=== PATIENT | female | born 1955 | race Caucasian/White ===

== ENCOUNTER 2017-09-12 05:00 | Day surgery (SDC) | payer BC ==
[2017-09-11 12:46] LABS: HEMATOCRIT 39.7 % (36.0-48.0); HEMOGLOBIN 13.3 g/dL (12-16); MCH 31.5 pg (26.0-34.0); MCHC 33.5 g/dL (31.0-37.0); MCV 94.1 fL (80.0-100.0); RBC 4.22 10x6/uL (4.00-5.40); RDW 13.5 % (11.5-14.5); WBC 4.9 10x3/uL (4.8-10.8)
[~2017-09-12] VITALS: Ht 174 cm; Wt 90.7 kg
[~2017-09-12 05:00] MED LIST: ADVAIR 250/501 DISK INH; BIOTIN5 MG PO; CALCIUM 500 +1 EAC3 PO; CALCIUM CA500 MG/51 PO; CENTRUM SILVER1 TA1 PO; CYMBALTA30 MG PO; ESTRACE 0.5 MG0.5 MG PO; FOLIC ACID1 MG PO; MIRALAX17 GM PO; PROMETRIUM200 MG PO; TREXALL10 MG PO; VENTOLIN HFA18 GM INH
[2017-09-12 06:24] VITALS: BP 124/81; Ht 174 cm; Wt 90.7 kg
--- NOTE | 2017-09-19 09:32 | OP ---
PATIENT NAME: LINA BARAHONA MEDICAL RECORD: [id number] :51 LOCATION:D.OPS ADMISSION DATE: SURGEON: RUBIA NAZARIO DPM DATE OF OPERATION: 09/12/2017 PREOPERATIVE DIAGNOSES: 1. Retrocalcaneal spur, left foot. 2. Achilles tendon disruption, left foot. POSTOPERATIVE DIAGNOSES: 1. Retrocalcaneal spur, left foot. 2. Achilles tendon disruption, left foot. PROCEDURES: 1. Gastroc recession, left leg. 2. Retrocalcaneal spur excision, left foot. 3. Achilles tendon repair, left foot. ANESTHESIA: Preoperative popliteal block per the anesthesia department as well as general anesthesia intraoperatively. HEMOSTASIS: Left thigh tourniquet at 350 mmHg. PREOPERATIVE DETAILS: The patient was taken to the OR and placed on the operating table in a prone position. Prior to placing the patient on the operating table, general anesthesia was induced. The left extremity was then prepped and draped in usual aseptic technique followed by exsanguination of extremity and inflation of tourniquet. PROCEDURE NUMBER 1: Gastroc recession, left leg. A 15-blade was used to create a 3 cm linear incision over the posterior aspect of the gastroc aponeurosis. The incision deepened down bluntly through subcutaneous tissue being sure to avoid the sural nerve and vein. Dissection was carried down to the peritenon. A linear incision was made on the peritenon, it was freed from the posterior aspect of the aponeurosis. With the foot held in dorsiflexion, a cut was made through the aponeurosis allowing adequate dorsiflexion of the ankle. The wound was flushed and the skin was closed with skin cyril. PROCEDURE NUMBER 2: Retrocalcaneal spur removal, left foot. A 15-blade was used to create a linear incision over the posterior aspect of the left heel approximately 4.5 to 5 cm in length. The incision was deepened down through subcutaneous tissue to the peritenon, which was incised sharply freeing the subcutaneous tissue from the posterior aspect of the left heel. The Achilles tendon was noted to be intact, but there were areas of degeneration. The tendon was reflected from the posterior calcaneus. A sagittal saw was then used to resect the spurring and create a nice smooth surface for repair of the Achilles tendon. PROCEDURE NUMBER 3: Achilles tendon repair, left foot. Utilizing 4 anchors in the calcaneus, a suture bridge technique was utilized to re-anchor the Achilles tendon to the posterior aspect of the calcaneus. After the repair was complete, the foot was moved through range of motion noting excellent rigid internal fixation of the tendon. The wound was flushed. The peritenon and deep tissue was repaired with 2-0 Vicryl, the subcutaneous tissue with 4-0 Rapide and the skin was closed with 4-0 Rapide in a subcuticular technique followed by OPERATIVE REPORT [id number] LINA BARAHONA Dermabond. Adaptic, 4 x 4s and Conform were used to dress both wounds followed by application of a modified Greene compression dressing. The tourniquet was deflated. POSTOPERATIVE DETAILS: The patient tolerated the procedure well and left the OR with vital signs stable and vascular status at preoperative levels. The patient was transported to recovery per anesthesia in stable condition. TRANSINT:[id number] Voice Confirmation ID: [id number] DOCUMENT ID: [id number] RUBIA NAZARIO DPM at [id number] CC: [id number] DICTATION DATE: 09/12/17 0839 KITCHEN HELPER: 09/12/17 1402 [facility] 09/12/17 [facility] [address] [place] [address]
== END 2017-09-12 10:20 | disposition home or self-care (01) ==
LOC: D.OPS 05:00 → D.PAN 07:00 → D.OPS 07:00
PROVIDERS: Anesthesiology
DX: M77.32 Calcaneal spur, left foot (principal); S86.012A Strain of left Achilles tendon, initial encounter; X58.XXXA Exposure to other specified factors, initial encounter; Z01.812 Encounter for preprocedural laboratory examination

== ENCOUNTER 2019-03-12 06:05 | Day surgery (SDC) | payer MEDICARE, BC ==
[2019-03-11 09:23] LABS: HEMOGLOBIN 13.3 g/dL (12-16); MCH 32.3 pg (26.0-34.0); MCHC 34.1 g/dL (31.0-37.0); MCV 94.7 fL (80.0-100.0); MEAN PLATELET VOLUME 9.7 fL (7.4-10.4); RBC 4.12 10x6/uL (4.00-5.40); RDW 13.4 % (11.5-14.5); WBC 6.5 10x3/uL (4.8-10.8)
[~2019-03-12] VITALS: Ht 175.3 cm; Wt 81.6 kg
--- NOTE | ~2019-03-12 | OP ---
PATIENT NAME: LINA BARAHONA MEDICAL RECORD: [id number] :51 LOCATION:[facility] ADMISSION DATE: SURGEON: RUBIA NAZARIO DPM DATE OF OPERATION: 03/12/2019 PREOPERATIVE DIAGNOSIS: Scar tissue and adhesions, left posterior lower leg. POSTOPERATIVE DIAGNOSIS: Scar tissue and adhesions, left posterior lower leg. PROCEDURE: Release of scar tissue and adhesions, left lower leg posteriorly. ANESTHESIA: General with local infiltrate utilizing lidocaine and Marcaine with epinephrine, 20 cc total, around the posterior lower left leg. HEMOSTASIS: Left thigh tourniquet at 350 mmHg. PREOPERATIVE DETAILS: The patient was taken to the OR and placed on the operating table in a prone position. Prior to this, general anesthesia was induced and then local anesthesia was infiltrated. The left extremity was then prepped and draped in usual aseptic technique followed by exsanguination and inflation of tourniquet. A #15 blade was used to create an incision overlying the previous incision of approximately 3 cm to 4 cm in length. The incision was deepened down utilizing Metzenbaum scissors, being sure to avoid the sural nerve and vein to the paratenon. There was noted to be adhesions between the paratenon and the subcutaneous tissue. This was freed bluntly with finger dilatation as well as Metzenbaum scissors. Excellent range of motion was noted of the gastroc aponeurosis, which was totally freed. A 1 cc of Depo-Medrol and 1 cc of lidocaine were then placed in the wound to try to prevent adhesions. At this time, 2-0 Vicryl was used to close the deep tissue, 4-0 Rapide was used to close the subcutaneous tissue, and 4-0 Rapide was used to close the skin in a subcuticular technique followed by Dermabond. Adaptic, 4 x 4, and Conform were used to dress the wounds followed by Coban. Tourniquet was deflated. POSTOPERATIVE DETAILS: The patient tolerated the procedure well and left the OR with vital signs stable and vascular status at preoperative levels. The patient was transported to recovery per anesthesia in stable condition. TRANSINT:[id number] Voice Confirmation ID: [id number] DOCUMENT ID: [id number] RUBIA NAZARIO DPM CC: [id number] DICTATION DATE: 03/12/19919 LICENSED PHYSICAL THERAPIST: 03/12/19 [address] [facility] 03/12/19 [facility] [address] [place] [address]
[~2019-03-12 06:05] MED LIST changes: -BIOTIN5 MG PO; +MERIBIN5 MG PO; +TENORMIN25 MG PO
[2019-03-12] MEDS ORDERED: BREO ELLIPTA 11 EACH INH (06:35)
[2019-03-12 06:37] VITALS: BP 118/75; Ht 175.3 cm; Wt 81.6 kg
--- NOTE | 2019-03-12 10:19 | NUR ---
1018 [place] DIET SERVED.
== END 2019-03-12 11:05 | disposition home or self-care (01) ==
LOC: D.OPS 06:05 → D.PAN 10:00 → D.OPS 10:00
PROVIDERS: Anesthesiology; ATTEND Podiatrist
DX: L90.5 Scar conditions and fibrosis of skin (principal)